=== PATIENT | female | born 1950 | race Caucasian/White ===

== ENCOUNTER 2022-05-09 08:05 | Outpatient (CLI) | payer MEDICARE, OTHER, SELFPAY ==
--- NOTE | ~2022-05-09 | DEXA_ITS ---
Bone Density Report Name: FLOR MONTIEL Age: 72 Sex: Female Ethnicity: White Date of : 1950 Indication: postmenopausal; screening for osteoporosis; hysterectomy; Referring Provider: ONI, MADY Tran Study: Bone densitometry was performed. Exam Date: May 09, 2022 Accession number: [id number] Bone Density: Region BMD T-score Z-score Classification AP Spine(L1-L4) 0.807 -2.2 0.0 Osteopenia Femoral Neck (Left) 0.586 -2.4 -0.5 Osteopenia Total Hip (Left) 0.820 -1.0 0.6 Normal Femoral Neck (Right) 0.600 -2.2 -0.4 Osteopenia Total Hip (Right) 0.817 -1.0 0.5 Normal Total Hip Mean 0.819 -1.0 0.6 Normal World Health Organization criteria for BMD impression classify patients as: Normal (T-score at or above -1.0), Osteopenia (T-score between -1.0 and -2.5), or Osteoporosis (T-score at or below -2.5). 10-year Fracture Risk(1): Major Osteoporotic Fracture 14% Hip Fracture 3.4% Reported Risk Factors: [place] (), Neck BMD=0.586, BMI=26.8 (1) FRAX(R) Version 3.08. Fracture probability calculated for an untreated patient. Fracture probability may be lower if the patient has received treatment. Clinical Information Provided by Patient: Has used the following medications: Vitamin D, Calcium Has the following medical conditions: Hysterectomy Patient maximum height was 64 Menopause Age: 50 No regular weight bearing exercise Does not regularly consume dairy products Onset of menses at age 14 Number of children 2 Impression: The patient has low bone mass, based on the Left Femoral Neck T-score. The patient has an estimated ten-year risk of hip fracture of 3.4% and an estimated ten-year risk of major fracture of 14%, based on the WHO FRAX algorithm. Discussion: BONE DENSITY IS LOW AT ONE OR MORE SKELETAL SITES. THE PATIENT'S BMD AND CLINICAL RISK FACTORS CONTRIBUTE TO THIS PATIENT'S INCREASED RISK OF FRACTURE. This patient's lowest T-score is low at one or more skeletal sites. It meets the World Health Organization's (WHO) criteria for ?low bone mass? (T-score between -1.0 and -2.5). The patient's 10-year risk of hip fracture as calculated by FRAX exceeds the threshold where pharmacological therapy is recommended by the National Osteoporosis Foundation (NOF). However, all treatment decisions require clinical judgment and consideration of individual patient factors, including patient preferences, comorbidities, previous drug use, risk factors not captured in the FRAX model (e.g., frailty, falls, vitamin D deficiency, increased bone turnover, interval significant decline in bone density) and possible under or overestimation of fracture risk by FRAX. The patient should follow a healthful lifestyle (good nutrition with adequate calcium and vitamin D, and appropriate weight-bear
--- NOTE | ~2022-05-09 | MM_ITS ---
EXAMINATION: MM screening michaela BI w reza HISTORY: Screening mammogram TECHNIQUE: Craniocaudal and mediolateral oblique 3-D tomosynthesis images were obtained and synthetic 2-D images were generated. CAD analysis was submitted and interpreted. COMPARISON: 07/15/2011, 07/11/2010 bilateral screening mammogram examinations BREAST PARENCHYMAL COMPOSITION: The breasts are heterogeneously dense, which may obscure small masses . FINDINGS: Stable mild fibroglandular asymmetry. Occasional benign calcifications are noted bilaterall y. There is no evidence of suspicious mass, calcification, or architectural distortion to suggest mal ignancy in either breast. There has been no suspicious interval change. IMPRESSION: 1. No mammographic evidence of malignancy. 2. Recommend routine screening mammography in one year. BI-RADS Category 2: Benign finding(s). Reviewed, dictated and finalized at location A. WORKER
== END 2022-05-09 08:06 | disposition home or self-care (01) ==
LOC: ANHIMG 08:12
PROVIDERS: Visit Provider Family Medicine
DX: Z12.31 Encounter for screening mammogram for malignant neoplasm of breast (principal); Z78.0 Asymptomatic menopausal state; M85.89 Other specified disorders of bone density and structure, multiple sites
CPT/HCPCS: 77063; 77067; 77080

== ENCOUNTER → 2022-07-01 07:59 | Outpatient (CLI) | payer SELFPAY ==
--- NOTE | ~2022-07-01 | XR_ITS ---
EXAMINATION: XR chest 2V 07/01/2022 09:24 INDICATION: Occupational exposure PROCEDURE: 2 view chest COMPARISON: 05/29/2010 FINDINGS: There is a subtle left basilar nodular asymmetries. The cardiomediastinal silhouette is wit hin normal limits. There are no pleural effusions. There is no pneumothorax suspected. IMPRESSION: 1: Subtle left basilar nodular asymmetries. Recommend correlation with CT chest to exclude parenchym al nodule. Reviewed, dictated and finalized at location B. VERY SUPERVISOR IMPRESSION: 1: Subtle left basilar nodular asymmetries. Recommend correlation with CT ches t to exclude parenchymal nodule.
== END ==
PROVIDERS: PCP Family Medicine
DX: T75.89XA Other specified effects of external causes, initial encounter (principal); R91.8 Other nonspecific abnormal finding of lung field
CPT/HCPCS: 71046

== ENCOUNTER 2023-10-13 08:01 | Outpatient (CLI) | payer MEDICARE, SELFPAY ==
--- NOTE | ~2023-10-13 | MM_ITS ---
EXAMINATION: MM screening michaela BI w reza HISTORY: Screening TECHNIQUE: Craniocaudal and mediolateral oblique 3-D tomosynthesis images were obtained and synthetic 2-D images were generated. CAD analysis was submitted and interpreted. COMPARISON: Comparison to multiple prior studies sequentially, with oldest reviewed study dated 09/2011. BREAST PARENCHYMAL COMPOSITION: Not dense: There are scattered areas of fibroglandular density. FINDINGS: There is no evidence of suspicious mass, calcification, or architectural distortion to sugg est malignancy in either breast. There has been no suspicious interval change. IMPRESSION: 1. No mammographic evidence of malignancy. 2. Recommend routine screening mammography in one year. BI-RADS Category 1: Negative Reviewed, dictated and finalized at location B.
== END 2023-10-13 08:02 | disposition home or self-care (01) ==
LOC: ANHIMG 08:04
PROVIDERS: PCP Family Medicine; Visit Provider Family Medicine
DX: Z12.31 Encounter for screening mammogram for malignant neoplasm of breast (principal)
CPT/HCPCS: 77063; 77067

== ENCOUNTER 2023-11-20 11:58 | Emergency (ER) | payer MEDICARE, SELFPAY ==
--- NOTE | ~2023-11-20 | XR_ITS ---
XR toe 5th RT min 2V 11/20/2023 12:26 Indication: Right fifth toe pain Procedure: 4 views right fifth toe Comparison: No prior studies for comparison. Findings: There is a mildly angulated, displaced extra-articular fracture right fifth proximal phalan x. Mild soft tissue swelling. No foreign bodies. Impression: 1: Displaced, angulated extra-articular fracture right fifth proximal phalanx. Reviewed, dictated and finalized at location B. Impression: 1: Displaced, angulated extra-articular fracture right fifth proximal phalanx.
[2023-11-20 12:13] VITALS: BP 116/77; PULSE 63; RESP 18; TEMP 36.4; O2SAT 98
[2023-11-20 12:15] VITALS: BP 116/77; PULSE 63; RESP 18; TEMP 36.4; O2SAT 98
--- NOTE | 2023-11-20 12:15 | ED.EXTPRO ---
HPI - Extremity Problem General Chief complaint: Extremity Problem,Nontraumatic Stated complaint: lower extremity injury Time Seen by Provider: 11/20/23 12:25 Source: patient, RN notes reviewed and old records reviewed Mode of arrival: ambulatory Limitations: no limitations History of Present Illness HPI Narrative: 73 year old female presents to [facility] care with complaints of accidentally getting the right 5th toe caught on an extra pair of flip flops that were in the kitchen causing 5th toe to hyperextend. Patient has pain and swelling to her right right 5th toe with noted deformity and bruising with swelling. No pain at rest but 8/10 with ambulation and palpation.Patient has applied ice to her right 5th toe MD Complaint: other (right 5th toe pain and injury) Onset (ago): hour(s) (at 0930 this morning) Pain Consistency: intermittent Location: right and toe (5th) Severity scale (1-10): 8 Quality: aching and sharp Relieving factors: cold therapy and rest Exacerbating factors: weight bearing and palpation Related Data Home Medications Medication Instructions Recorded Confirmed carvedilol 3.125 mg tablet mg 11/20/23 rosuvastatin 20 mg tablet mg 11/20/23 Allergies Allergy/AdvReac Type Severity Reaction Status Date / Time No Known Allergies Allergy Verified 11/20/23 12:15 Review of Systems Review of Systems: CONSTITUTIONAL: Denies fever, chills, or sweats. EYES: Denies visual changes, redness, or discharge. ENT: Denies rhinorrhea, congestion, sore throat, or otalgia. CARDIOVASCULAR: Denies chest pain, palpitations, or edema. RESPIRATORY: Denies cough or dyspnea. GASTROINTESTINAL: Denies abdominal pain, nausea, vomiting, or diarrhea. GENITOURINARY: Denies dysuria or hematuria. SKIN: Denies rash or itching. MUSCULOSKELETAL: Denies back pain,positive for right 5th toe pain and swelling with bruising,or myalgia. NEUROLOGIC: Denies headache, numbness, or weakness. PSYCHIATRIC: Denies anxiety or depression. All systems reviewed & are unremarkable except as noted in HPI and below PMFSH Past Medical History Medical History (Updated 11/22/23 @ 08:29 by Mary Ann Gusman NP) Hyperlipidemia Surgical History Surgical History (Updated 11/20/23 @ 12:40 by Mary Ann Gusman NP) H/O: hysterectomy History of tubal ligation Social History Social History (Updated 11/22/23 @ 08:22 by Mary Ann Gusman NP) Smoking status: Never smoker Alcohol intake: current Alcohol use details: social Substance use type: does not use Living arrangements: alone Additional living arrangements comments: family lives close Gender identity (if verbalized by the patient): Female Comments At time of signature, agree with nursing past medical, surgical, social and family history. There is no relevant family history pertinent to the presenting complaint Exam Narrative: GENERAL: Well-appearing, well-nourished, and in no acute distress. HEAD: Normocephalic, atraumatic. EYES: PERRLA and EOMI. ENT: Nares clear, no rhinorrhea or epistaxis. Mucous membranes moist. NECK: Supple.no lymphadenopathy CHEST: Clear to auscultation. No respiratory distress.SAO2 98% on room air HEART: Regular rate and rhythm. No murmur heard. Normal peripheral pulses. ABDOMEN: Soft, nontender, nondistended, normal active bowel sounds. EXTREMITIES: Normal range of motion. Exception noted to right 5th toe with swelling bruising and noted deformity, palpable right pedal pulse foot warm and pink SKIN: Warm, dry, no rash. NEURO: No focal deficits. Alert and oriented x3. Course Course Emergency Course: Patient is aware of diagnosis, understands and agrees to treatment plan.? Anticipatory guidance given.? Patient agrees to follow-up as directed and is aware of reasons to seek care at the emergency department. Portions of this record may have been created with voice recognition software Level of Care: Express Care Visit Vital Signs Vital signs: Vit
== END 2023-11-20 13:13 | disposition home or self-care (01) ==
PROVIDERS: Emergency Provider Registered Nurse; PCP Family Medicine
DX: S92.511A Displaced fracture of proximal phalanx of right lesser toe(s), initial encounter for closed fracture (principal); W22.8XXA Striking against or struck by other objects, initial encounter; E78.5 Hyperlipidemia, unspecified
CPT/HCPCS: 73660; 99214; G0463

== ENCOUNTER 2024-12-24 05:03 | Emergency (ER) | payer MEDICARE, SELFPAY ==
--- NOTE | ~2024-12-24 | CT_ITS ---
EXAMINATION: CT abdomen pelvis wo con DATE: 12/24/2024 08:01 INDICATION: Right flank pain. History of kidney stones. TECHNIQUE: Computed tomography (CT) of the abdomen and pelvis was performed without intravenous contr ast. The dose-length product was 474.12 mGy-cm. Automated exposure control and iterative reconstructi on technique were employed. COMPARISON: CT dated 05/30/2008 FINDINGS: Dependent atelectasis. Otherwise, lung bases unremarkable. Heart size normal. No significan t pleural or pericardial effusion. The liver, pancreas, adrenal glands are unremarkable. There are ca lcified granulomas of the spleen. There are nonobstructing bilateral renal stones. There is a left ex trarenal pelvis. No ureteral stones or hydronephrosis. Bladder is unremarkable. Nonobstructive bowel gas pattern. The appendix is not positively visualized. There is no pericecal inflammatory change to suggest appendicitis. There are pelvic phleboliths. Gallbladder is present. No significant vascular abnormality. No lymphadenopathy. IMPRESSION: 1. Nonobstructing bilateral nephrolithiasis. Reviewed, dictated and finalized at location A.
--- OUTSIDE RECORDS SUMMARY | 2024-12-24 05:05 | XMS_ITS | Clinical Summary ---
Author Organization [facility] Address [address] [place] [address] Care Team Providers Care Qa Software Test Engineer Name Role Phone Dallas Teague MD Primary Care Provider + Allergies No known active allergies Medications triamcinolone (KENALOG) 0.1 % cream APPLY AA ONCE D 3 TO 5 TIMES A WEEK 2 019 Active aspirin 81 mg enteric coated tabletIndications:CAD in [place] artery Take 1 tablet (81 mg total) by mouth daily 30 tablet 11 022 Active Additional Information Patient taking differently:81 mg oralEvery other day, Reported on 07/26/2024 clobetasoL (TEMOVATE) 0.05 % cream APPLY THIN LAYER TOPICALLY TO THE AFFECTED AREA TWICE DAILY FOR 2 WEEKS NEEDED FOR ITCHING Active tacrolimus (PROTOPIC) 0.1 % ointment APPLY TOPICALLY TO THE AFFECTED AREA TWICE DAILY NEEDED Active carvediloL (COREG) 3.125 mg tabletIndications:CAD in [place] artery TAKE 1 TABLET(3.125 MG) BY MOUTH TWICE DAILY 180 tablet 3 024 Active rosuvastatin (CRESTOR) 20 mg tabletIndications:Pure hypercholesterolemia TAKE 1 TABLET(20 MG) BY MOUTH DAILY 90 tablet 3 024 Active promethazine-DM (PROMETHAZINE-DM) 1.25-3 mg/mL syrupIndications:Acute cough TAKE 5 TO 10 ML BY MOUTH EVERY 4 HOURS NEEDED FOR COUGH 120 mL 2 025 Active Additional Information Patient not taking.Reported on 07/26/2024 alendronate (FOSAMAX) 70 mg tabletIndications:Age-r elated osteoporosis without current pathological fracture Take 1 tablet (70 mg total) by mouth every 7 days Take in the morning with a full glass of water, on an empty stomach, and do not take anything else by mouth or lie down for the next 30 min. 12 tablet 3 025 2025 Active Active Problems Problem Noted Date Diagnosed Date Age-related osteoporosis wit hout current pathological fracture 07/26/2024 Pre-diabetes 07/25/2023 Assessment & Plan (07/25/2023 4:40 PM CDT): - discussed diet and exercise to avoid development of diabetes. SOB (shortness of breath) 07/25/2023 Assessment & Plan (07/25/2023 4:41 PM CDT): - will get PFTs to evaluate lung function - if sx worsen will get repeat CXR Encounter for preventive health examination 06/12 Assessment & Plan (07/25/2023 4:40 PM CDT): - Reviewed with the patient BMI, blood pressure, diet, exercise, and encouraged healthy lifestyle choices. - Screened for high risk behaviors, diet and exercise habits, and symptoms of depression. - reviewed screening labs - encouraged regular exercise and healthy lifestyle Assessment & Plan (06/26/2022 4:22 PM SOLUTION STRATEGIST): - Reviewed with the patient BMI, blood pressure, diet, exercise, and encouraged healthy lifestyle choices. - Screened for high risk behaviors, diet and exercise habits, and symptoms of depression. - check screening labs - encouraged regular exercise Pure hypercholesterolemia 02/06/2022 Assessment & Plan (07/25/2023 4:40 PM CDT): - stable - continue current medication Assessment & Plan (06/26/2022 4:22 PM SOLUTION STRATEGIST): - stable - continue current medication Assessment & Plan (02/06/2022 3:30 PM CDT): - stable - continue current medication Coronary artery disease invo [place]ving [place] coronary artery of [place] heart without angina pectoris 02/06/2022 Assessment & Plan (07/25/2023 4:40 PM CDT): - stable - continue current medication Assessment & Plan (06/26/2022 4:22 PM SOLUTION STRATEGIST): - stable - continue current medication Assessment & Plan (02/06/2022 3:29 PM CDT): - stable - continue current medication Flexural eczema 02/06/2022 Assessment & Plan (07/25/2023 4:40 PM CDT): - stable - continue current medication Assessment & Plan (02/06/2022 3:30 PM CDT): - stable - continue current medication Encounters Date Type Department Care Team Description 12/06/2024 Telephone [facility] Primary Care [address] [place] [address] [address] [place] [address] Jessica Quick MA Chart Review ([employer] statin no appt) 11/22/2024 Telephone [facility] Primary Care [address] [place] [address] [address] [place] [address] Dallas Teague MD Medical Records Request 09/27/2024 8:15 AM CDT Office Visit [facility] Hand Surgery [address] [place] [address] [address] [place] [address] Ching Zuniga PA Trigger finger of right hand, unspecified finger (Primary Dx); Trigger finger of left hand, unspecified finger; 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 from Last 3 Months Immunizations Immunization Administration Dates Next Due Hep A, Adult 08/23/2004 Influenza, Quad, Adjuvantate d, Intramuscular 01/24/2020 Influenza, Quadrivalent, Hig h Dose, Preservative Free, Intrr 02/06/2022 Influenza, Quadrivalent, Spl it, Intramuscular 01/24/2020,05/12/2012 Influenza, Trivalent, High D ose, Split, Preservative Free, Intramuscular 02/19/2019,03/18/2018 Influenza, Unspecified 02/10/2024(Deferr ed: Patient Refused),02/09/2023(Deferred: Other),01/24/2021,01/10/2021 Moderna SARS-CoV-2 Monovalen t Vaccination (12+ YRS) 02/08/2021,01/10/2021 Pneumococcal Conjugate PCV 13 03/12/2017 Pneumococcal Polysaccharide PPV23 03/18/2018 Td, Not Adsorbed 05/12/2011 Tdap 07/23/2020 ZOSTER Recombinant 05/12/2010 Surgical History Surgery Date Site/Laterality Comments HYSTERECTOMY HAND SURGERY 6 years ago Left HAND SURGERY 05/26/2019 Right CARDIAC CATHETERIZATION ANGIOPLASTY about 3.5 years ago Medical History Medical History Date Comments History of angina CAD (coronary artery disease) Arthritis about a year ago Heart disease Angina - 3.5 years ago Kidney stone 1 about 5 years ago Family History Medical History Relation Name Comments Bladder Cancer Father Bharat Cancer Father Bharat Diabetes Father Bharat Heart attack Father Bharat Heart disease Father Bharat Stroke Father Bharat Alzheimer's disease Mother Alva Arthritis Mother Alva Hyperlipidemia Mother Alva Relation Name Status Comments Father Bharat (Age 82) Mother Alva (Age 88) Social History Tobacco Use Types Packs/Day Years Used Date Smoking Tobacco: Never Smokeless Tobacco: Never Alcohol Use Standard Drinks/Week Comments Never 0 (1 standard drink = 0.6 oz pur e alcohol) AUDIT-C Answer Date Recorded Q1: How often do you have a drink containing alcohol? Never 07/26/2024 Q2: How many drinks containi ng alcohol do you have on a typical day when you are drinking? Patient does not drink Q3: How often do you have si x or more drinks on one occasion? Never 07/26/2024 PHQ-2 Answer Date Recorded PHQ-2 Total Score (If total score is 3 or more points, staff should administer the PHQ-9) 0 07/26/2024 Comments Unknown Sex and Gender Information Value Date Recorded Sex Assigned at Not on file Legal Sex Female 9:00 PM SOLUTION STRATEGIST Gender Identity Not on file Sexual Orientation Not on file Obstetrics History Last Filed Vital Signs Vital Sign Reading Time Taken Comments Blood Pressure 124/72 07/26/2024 3:59 PM CDT Pulse 67 07/26/2024 3:59 PM CDT Temperature 36.2 C (97.2 F) 07/26/2024 3:59 PM CDT Respiratory Rate 16 07/26/2024 3:59 PM CDT Oxygen Saturation 97% 07/26/2024 3:59 PM CDT Inhaled Oxygen Concentration - - Weight 73.9 kg (163 lb) 07/26/2024 3:59 PM CDT Height 162.6 cm (5' 4) 07/26/2024 3:59 PM CDT Body Mass Index 27.98 07/26/2024 3:59 PM CDT Plan of Treatment Health Maintenance Due Date Last Done Comments Hepatitis C Screening 1950 Hepatitis B Screening 1968 Zoster Vaccine (2 of 2) 07/07/2010 05/12/2010 Covid-19 Vaccine (3 2023-2 5 season) 2024 02/08/2021, 01/10/2021 Osteoporosis Screening-Bone Density Scan 05/09/2024 05/09/2022 Breast Cancer Screening-Mammogram 10/12/2024 10/13/2023, 05/09/2022, 01/01/2021, Additional history exists Colon Cancer Screening-Colonoscopy 12/19/2024 12/20/2019 Influenza Vaccine (#1) 2025 , 01/24/2021, 01/10/2021, Additional history exists Depression Screening 07/26/2025 07/26/2024, 07/25/2023, 06/26/2022, Additional history exists Fall Risk Assessment 07/26/2025 07/26/2024, 07/25/2023, 06/26/2022, Additional history exists Well Visit 65+ 07/26/2025 07/26/2024, 07/10, 06/26/2022 DTaP/Tdap/Td Vaccine (2 - Td or Tdap) 07/23/2030 07/23/2020, 05/12/2011 Pneumococcal vaccine 65+ Completed 03/18/2018, 05/2016 Colon Cancer Screening-CT Colonography Discontinued 12/20/2019 Colon Cancer Screening-DNA Stool Discontinued 12/20/19 Colon Cancer Screening-FIT Discontinued 12/20/2019 Colon Cancer Screening-Sigmoidoscopy Discontinued 12/20/2019 Procedures Procedure Name Priority Date/Time Associated Diagnosis Comments CA ARTHROCENTESIS ASPIR&/INJ SMALL JT/BURSA W/O US Routine 09/27/2024 8:15 AM CDT 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 CA INJECTION 1 TENDON SHEATH/LIGAMENT APONEUROSIS Routine 09/27/2024 8:15 AM CDT Trigger finger of left hand, unspecified finger CA INJECTION 1 TENDON SHEATH/LIGAMENT APONEUROSIS Routine 09/27/2024 8:15 AM CDT Trigger finger of right hand, unspecified finger SCREENING MAMMOGRAM BILATERAL W CHET Schedule Routine, Read Routine (OP Routine) 10/13/2023 9:20 AM CDT DEXA AXIAL SKELETON BONE DENSITY 1 OR MORE SITES Schedule Routine, Read Routine (OP Routine) 05/09/2022 COLONOSCOPY Routine 12/20/2019 from Last 3 Months or Most Recently Relevant to Health Maintenance Results * CA INJECTION 1 TENDON SHEATH/LIGAMENT APONEUROSIS (09/27/2024 8:15 AM CDT) Narrative Ching Zuniga PA - 09/27/2024 8:15 AM CDT Ching Zuniga PA 09/27/2024 8:43 AM Hand / Upper Extremity Arthrocentesis: L thumb A1 Performed by: Ching Zuniga PA Authorized by: Ching Zuniga PA Consent Given by: Patient Verbal consent obtained?: Yes Indications: Pain and therapeutic Condition: trigger finger Location: Thumb Site: L thumb A1 Prep: patient was prepped using a clean technique Needle Size: 27 G Approach: Volar Ultrasound guidance: No Medications Left Thumb Injection: 1 mL lidocaine 10 mg/mL (1 %); 10 mg triamcinolone 40 mg/mL Ching RECIO IN CLINIC/BEDSIDE ORDERABLES F inal Result * CA INJECTION 1 TENDON SHEATH/LIGAMENT APONEUROSIS (09/27/2024 8:15 AM CDT) Narrative Ching Zuniga PA - 09/27/2024 8:15 AM CDT Ching Zuniga PA 09/27/2024 8:43 AM Hand / Upper Extremity Arthrocentesis: R ring A1 Performed by: Ching Zuniga PA Authorized by: Ching Zuniga PA Consent Given by: Patient Verbal consent obtained?: Yes Indications: Therapeutic and pain Condition: trigger finger Location: Ring finger Site: R ring A1 Prep: patient was prepped using a clean technique Needle Size: 27 G Approach: Volar Medications Right Ring Injection: 1 mL lidocaine 10 mg/mL (1 %); 10 mg triamcinolone 40 mg/mL us Ching RECIO IN CLINIC/BEDSIDE ORDERABLES F inal Result * CA ARTHROCENTESIS ASPIR&/INJ SMALL JT/BURSA W/O US (09/27/2024 8:15 AM CDT) Narrative Ching Zuniga PA - 09/27/2024 8:15 AM CDT Ching Zuniga PA 09/27/2024 8:43 AM Small Joint (Foot, Fingers, Toes) Injection: R thumb MCP Performed by: Ching Zuniga PA Authorized by: Ching Zuniga PA Small Joint Injection/Aspiration: Consent Given by: Patient Verbal consent obtained?: Yes Supporting Documentation: Indications: Pain Procedure Details: Location: Thumb Site: R thumb MCP Prep: patient was prepped using a clean techinque Needle Size: 27 G Approach: Dorsal Ultrasound guidance: No Medications: 5 mg triamcinolone 40 mg/mL us Ching RECIO IN CLINIC/BEDSIDE ORDERABLES F inal Result * Screening Mammogram Bilateral W Chet (10/13/2023 9:20 AM CDT) Anatomical Region Laterality Modality Breast Bilateral Mammography Narrative 10/13/2023 9:20 AM CDT Report scanned into media us Historical Provider MD ELAINE MAMMO PROCEDURES Dianna l Result * Dexa Axial Skeleton Bone Density 1 or 2 Site (05/09/2022) Anatomical Region Laterality Modality Body N/A Radiographic Leticia ging us Historical Provider MD ELAINE DXA PROCEDURES Final Result * Colonoscopy (12/20/2019) Anatomical Region Laterality Modality Other us Historical Provider ENDOSCOPY PROCEDURES Dianna l Result from Last 3 Months or Most Recently Relevant to Health Maintenance Insurance [employer] MEDIC[employer] PPO Advance Directives For more information, please contact: [phone] Documents on File Type Date Recorded 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
--- OUTSIDE RECORDS SUMMARY | 2024-12-24 05:05 | XMS_ITS | Continuity of Care Document ---
Author Organization [facility] Address [address] [place] [address] Phone Care Team Providers Care Traveling Engineer Name Role Phone Abhay Breen MD Unavailable Unavailable Advance Directives Directive Yes / No Effective Date File Name No Information Encounters Encounter Description Practice Location Reason(s) For Visit Diagnoses Date Provider Providers Copied on Encounter [facility], [address], [place], [place], [id number], [place] tel:[phone] MICAELA Valderramacson No Information Jamshid Blank. [address], [place], [place], [id number], [place]. tel:[phone] Family History Family Member Type Diagnosis Age At Onset No Information Payers Payer name Insurance type Covered alliance party ID Authoriza tion(s) No Information Social History Type Description Quantity Date Captured Comments Sex Female Smoking Status No Information Chief Complaint And Reason For Visit No Information Reason For Referral Reason For Referral No Information History Of Present Illness Encounter Date Complaint History Of Prese nt Illness No Information Functional Status Date Functional Assessmen t No Information Instructions Date Instruction Additional Infor mation No Information Assessments Type Assessment Date No Information Patient Care Teams Name Effective Dates (start - stop) Status Members No Information
[2024-12-24 05:08] VITALS: BP 138/102; PULSE 70; RESP 20; TEMP 36.5; O2SAT 96
--- NOTE | 2024-12-24 07:26 | ECG_ITS ---
Test Date: 2024-12-24 07:42:52 Measurements Intervals [place] Rate: 61 P: 63 [place]: 164 QRS: -23 QRSD: 81 T: 54 QT: 398 QTc: 401 Interpretive Statements SINUS RHYTHM CANNOT R/O SEPTAL INFARCT, AGE INDETERMINATE BORDERLINE ST ABNORMALITY- HIGH LATERAL LEADS ABNORMAL ECG No previous ECG available for comparison Electronically Signed On 12-24-2024 08:09:31 CDT by Andrew Vivar D.O.
[2024-12-24 07:42] VITALS: BP 131/71; PULSE 68; RESP 15; O2SAT 100
[2024-12-24] MEDS: SODIUM CHLORIDE 0.9% IV 1,000 ML 999 ML IV CONT (07:46)
[2024-12-24] MEDS: HYDROmorphone HCL INJ (*CRX) 1 MG/ML SYR 0.5 MG IV PUSH (07:47)
[2024-12-24] MEDS: ACETAMINOPHEN 500 MG TABLET 1000 MG PO (07:47)
[2024-12-24 07:55] LABS: Hematocrit 41.7 % (37.0-47.0); Hemoglobin 13.5 g/dL (12.0-15.0); Immature Granulocyte Percent A 0.2 % (0-0.5); Lymphocytes Absolute Auto 1.42 K/mm3 (0.9-3.2); Mean Corpuscular HGB Conc 32.4 g/dl (32-36); Mean Corpuscular Hemoglobin 29.5 pg (26-34); Mean Corpuscular Volume 91.2 fl (80-100); Nucleated Red Blood Cells Absolute Auto 0.000 K/mm3 (0.0-0.012); Nucleated Red Blood Cells Perc 0.0 % (0.0-0.2); Platelet Count Result 185 k/mm3 (150-375); Red Blood Count 4.57 M/mm3 (4.2-5.4); White Blood Count 4.8 K/mm3 (4.5-10.0)
[2024-12-24 07:58] LABS: Add Urine Microscopic? YES; Appearance Urine Clear (Clear); Glucose Urine UA Negative (Negative); Leukocyte Esterase Ur 1+ LEU/UL (Negative); Nitrate Urine Negative (Negative); Non Pathogenic Casts 0-2; Specific Grav Ur 1.028 (1.001-1.035)
[2024-12-24 08:05] LABS: Alanine Aminotransferase 35 U/L (6-35); Albumin Level 4.2 g/dL (3.5-5.1); Alkaline Phosphatase 55 U/L (38-126); Anion Gap 8 mmol/L (4-12); Aspartate Amino Transferase 35 U/L (14-36); Bilirubin,Total 0.5 mg/dL (0.2-1.3); Blood Urea Nitrogen 19 mg/dL (7-17); Calcium 9.4 mg/dL (8.4-10.2); Carbon Dioxide 27 mmol/L (22-30); Chloride 107 mmol/L (98-107); Estimated CRCL calculation 68 ml/min; Estimated Glomerular Filt Rate > 60; Glucose 130 mg/dL (65-110); Potassium 4.4 mmol/L (3.4-5.0); Sodium 142 mmol/L (137-145); Total Protein 7.1 g/dL (6.3-8.2)
--- NOTE | 2024-12-24 08:10 | ED_ITS ---
HPI - General Adult General Chief complaint: Back Pain/Injury Stated complaint: back pain Time Seen by Provider: 12/24/24 06:59 History of Present Illness HPI narrative: This is a 74-year-old female presenting ED with chief complaint of back/flank pain. Patient says starting yesterday she had pain in her right lower back that radiated down her leg. It is described as a tingly sensation. Today pain is more located in her right flank and radiates in right lower abdomen. It is worse with movement. It does not completely resolve when she is not moving. She does not have any weakness to her lower extremities, saddle anesthesia, bladder retention or bowel incontinence. No traumatic injuries. No fevers or known cancer. She has a history of kidney stones Related Data Home Medications ?Medication ?Instructions ?Recorded ?Confirmed ?Last Taken ?Type carvedilol 3.125 mg tablet 3.125 mg PO BID 11/20/23 12/10/24 Unknown History rosuvastatin 20 mg tablet 20 mg PO DAILY 11/20/23 12/10/24 Unknown History Allergies Allergy/AdvReac Type Severity Reaction Status Date / Time No Known Allergies Allergy Verified 12/24/24 05:11 [facility] Past Medical History Medical History (Updated 12/24/24 @ 10:10 by Roberto Johnson MD) Hyperlipidemia Surgical History Surgical History (Updated 11/20/23 @ 12:40 by Mary Ann Gusman NP) History of tubal ligation H/O: hysterectomy Social History Social History (Updated 11/22/23 @ 08:22 by Mary Ann Gusman NP) Smoking status: Never smoker Alcohol intake: current Alcohol use details: social Substance use type: does not use Living arrangements: with family Additional living arrangements comments: family lives close Gender identity (if verbalized by the patient): Female Spiritual care concerns: No Exam 2 Narrative: APPEARANCE: No apparent distress. Head: atraumatic. EYES: EOMI, NOSE: Atraumatic NECK: Trachea midline RESPIRATORY: No increased rate of breathing CARDIOVASCULAR: RRR, pulses +2 in lower extremities ABDOMINAL: Non-distended soft nontender no guarding rebound, no CVA tenderness MUSCULOSKELETAl: Straight leg negative bilaterally, reproducible pain on movement NEURO: Alert. Cranial nerves 2-12 grossly intact. Sensation light touch, motor function cerebellar function intact for 4 extremities. Gait exam was normal. SKIN:: Warm, dry. Normal color PSYCHIATRIC: Normal affect Course Vital Signs Vital signs: Vital Signs Temperature 97.7 F 12/24/24 05:08 Pulse Rate 70 12/24/24 05:08 Respiratory Rate 20 12/24/24 05:08 Blood Pressure 138/102 H 12/24/24 05:08 Pulse Oximetry 96 12/24/24 05:08 Oxygen Delivery Room Air 12/24/24 05:08 Temperature 97.7 F 12/24/24 05:08 Pulse Rate 68 12/24/24 07:42 Respiratory Rate 15 12/24/24 07:42 Blood Pressure 131/71 12/24/24 07:42 Pulse Oximetry 100 12/24/24 07:42 Oxygen Delivery Room Air 12/24/24 05:08 Medical Decision Making MDM Narrative Medical decision making narrative: -Course: 74-year-old female history of kidney stones presenting with right flank pain. Pain is worse with movement. There is no CVA tenderness. CT a/pthis showed bilateral nephrolithiasis but no ureteral stones. Urine with 6- 10 white blood cells. Discussed this with the patient she does not have any urinary symptoms and we will not treat for a UTI. Patient's pain improved. Symptoms most consistent with MSK pain/back spasms. She will be discharged on Tylenol Robaxin and lidocaine patches. Given return precautions. -DDX includes but is not limited to: Muscle strain, UTI/pyelo, kidney stone Vital Signs Vital Signs: Vital Signs Temperature 97.7 F 12/24/24 05:08 Pulse Rate 70 12/24/24 05:08 Respiratory Rate 20 12/24/24 05:08 Blood Pressure 138/102 H 12/24/24 05:08 Pulse Oximetry 96 12/24/24 05:08 Oxygen Delivery Room Air 12/24/24 05:08 Temperature 97.7 F 12/24/24 05:08 Pulse Rate 68 12/24/24 07:42 Respiratory Rate 15 12/24/24 07:42 Blood Pressure 131/71 12/24/24 07:42 Pulse Oximetry 100 12/24/24 07:42 Oxygen Delivery Room Air 12/24/24 05:08 Lab Data 12/24/24 07:46 12/24/24 07:46 Labs: Lab Results 12/24/24 Range/Units 07:46 WBC 4.8 (4.5-10.0) K/mm3 RBC 4.57 (4.2-5.4) M/mm3 Hgb 13.5 (12.0-15.0) g/dL Hct 41.7 (37.0-47.0) % MCV 91.2 (80-100) fl MCH 29.5 (26-34) pg MCHC 32.4 (32-36) g/dl RDW 12.7 (11.5-14.5) % Plt Count 185 (150-375) k/mm3 MPV 8.6 (7.4-10.4) fl Immature Gran % (Auto) 0.2 (0-0.5) % Neut % (Auto) 59.8 (45.5-73.1) % Lymph % (Auto) 29.6 (18.3-44.2) % [place] % (Auto) 8.1 (2.6-8.5) % Eos % (Auto) 1.9 (0-4.4) % Baso % (Auto) 0.4 (0.2-1.2) % Lymph # (Auto) 1.42 (0.9-3.2) K/mm3 [place] # (Auto) 0.4 (0.1-0.6) K/mm3 Eos # (Auto) 0.1 (0-0.3) K/mm3 Baso # (Auto) 0.0 (0.0-0.1) K/mm3 Abs Immat Gran (auto) 0.01 (0.00-0.031) K/mm3 Absolute Neuts (auto) 2.9 (1.3-6.7) K/mm3 Absolute Nucleated RBC 0.000 (0.0-0.012) K/mm3 Nucleated RBC % 0.0 (0.0-0.2) % Sodium 142 (137-145) mmol/L Potassium 4.4 (3.4-5.0) mmol/L Chloride 107 (98-107) mmol/L Carbon Dioxide 27 (22-30) mmol/L Anion Gap 8 (4-12) mmol/L BUN 19 H (7-17) mg/dL Creatinine 0.61 L (0.7-1.0) mg/dL Estim Creat Clear Calc 68 ml/min Estimated GFR > 60 (59 - ) Glucose 130 H (65-110) mg/dL Calcium 9.4 (8.4-10.2) mg/dL Total Bilirubin 0.5 (0.2-1.3) mg/dL AST 35 (14-36) U/L ALT 35 (6-35) U/L Alkaline Phosphatase 55 (38-126) U/L Total Protein 7.1 (6.3-8.2) g/dL Albumin 4.2 (3.5-5.1) g/dL Urine Color Yellow (Yellow) Urine Appearance Clear (Clear) Urine pH 6.0 (5.0-9.0) Ur Specific [place] 1.028 (1.001-1.035) Urine Protein Negative (Negative) mg/dL Urine Glucose (UA) Negative (Negative) mg/dL Urine Ketones Negative (Negative) mg/dL Ur Blood (Man) Negative (Negative) Urine Nitrate Negative (Negative) Urine Bilirubin Negative (Negative) Urine Urobilinogen 0.2 (<2.0) mg/dL Leukocyte Esterase Rfl 1+ H (Negative) SAHRA/UL Urine RBC 0-2 (0-2) /hpf Urine WBC 6-10 H (0-3) /hpf Ur Squamous Epith Cells None seen (Few) /hpf Urine Bacteria None seen /hpf Urine Casts 0-2 Discharge Plan Discharge Clinical Impression: Back pain Patient Disposition: Home Condition: Stable Instructions: Antibiotic Form, Back Pain (ED) Additional Instructions: You were seen in the emergency department for back pain. Please use Tylenol Robaxin and lidocaine patches as needed. Please follow-up your primary care for further management. If you develop severe pain or any new symptoms please return to the ED for re-evaluation. Patient Language: Tongan Prescriptions: New acetaminophen 500 mg tablet 1,000 mg PO TID PRN (Reason: michael) 7 Days Qty: 42 0RF methocarbamol 750 mg tablet 1,500 mg PO TID Qty: 42 0RF lidocaine 5 % adhesive patch,medicated 1 patch topical DAILY Qty: 15 0RF Rx Instructions: leave on most painful area for up to 12 hrs No Action carvedilol 3.125 mg tablet 3.125 mg PO BID rosuvastatin 20 mg tablet 20 mg PO DAILY Follow-up/Referrals: Zahida,Dallas Tran MD [Primary Care Provider] -
[2024-12-24 10:13] VITALS: BP 114/66; PULSE 65; RESP 17; O2SAT 100
== END 2024-12-24 10:33 | disposition home or self-care (01) ==
PROVIDERS: Emergency Provider Emergency Medicine; PCP Family Medicine
DX: M54.50 Low back pain, unspecified (principal); E78.5 Hyperlipidemia, unspecified; Z90.710 Acquired absence of both cervix and uterus; Z79.899 Other long term (current) drug therapy; R94.31 Abnormal electrocardiogram [ECG] [EKG]
CPT/HCPCS: 36415; 74176; 80053; 81001; 85025; 87086; 93005; 96361; 96374; 99284; A9270; J1171; J7030

== ENCOUNTER 2024-12-27 00:59 | Day surgery (SDC) | payer MEDICARE, SELFPAY ==
[2024-12-10 13:33] VITALS: BMI 27.3
--- OUTSIDE RECORDS SUMMARY | 2024-12-27 01:01 | XMS_ITS | Continuity of Care Document ---
Author Organization [facility] Address [address] [place] [address] Phone Care Team Providers Care Division Traffic Superintendent Name Role Phone Abhay Breen MD Unavailable Unavailable Advance Directives Directive Yes / No Effective Date File Name No Information Encounters Encounter Description Practice Location Reason(s) For Visit Diagnoses Date Provider Providers Copied on Encounter [facility], [address], [place], [place], [id number], [place] tel:[phone] MICAELA Valderramacson No Information Jam[facility] Blank. [address], [place], [place], [id number], [place]. tel:[phone] Family History Family Member Type Diagnosis Age At Onset No Information Payers Payer name Insurance type Covered green party ID Authoriza tion(s) No Information Social [...]
--- OUTSIDE RECORDS SUMMARY | 2024-12-27 01:01 | XMS_ITS | Clinical Summary ---
Author Organization [facility] Address [address] [place] [address] Care Team Providers Care Dairy Husbandman Name Role Phone Dallas Teague MD Primary Care Provider + Allergies No known active allergies Medications triamcinolone (KENALOG) 0.1 % cream APPLY AA ONCE D 3 TO 5 TIMES A WEEK 2 019 Active aspirin 81 mg enteric coated tabletIndications:CAD in holy cross artery Take 1 tablet (81 mg total) [...] Active carvediloL (COREG) 3.125 mg tabletIndications:CAD in [place] cross artery TAKE 1 TABLET(3.125 MG) BY MOUTH [...] lifestyle Assessment & Plan (06/26/2022 4:22 PM YEAST STACKER): - Reviewed with the patient BMI, blood pressure, diet, exercise, and encouraged healthy lifestyle choices. - Screened for high risk behaviors, diet and exercise habits, and symptoms of depression. 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 02/06/2022 Assessment & Plan (07/25/2023 4:40 PM CDT): - stable - continue current medication Assessment & Plan (06/26/2022 4:22 PM YEAST STACKER): - stable - continue current medication Assessment & Plan (02/06/2022 3:29 PM CDT): - stable - continue current medication Flexural eczema 02/06/2022 Assessment & Plan (07/25/2023 4:40 PM CDT): - stable - continue current medication Assessment & Plan (02/06/2022 3:30 PM CDT): - stable - continue current medication Encounters Date Type Department Care Team Description 12/06/2024 Telephone [facility] Primary [facility] [address] [place] [address] [address] [place] [address] Jessica Quick MA Chart Review ([employer] statin no appt) 11/22/2024 Telephone [facility] [address] [place] [address] [address] [place] [address] Dallas Teague MD Medical Records Request 09/27/2024 8:15 AM CDT Office Visit [facility] Hand Surgery [address] [place] [address] [address] [place] [address] Ching Zuniga PA Trigger finger [...] on file Legal Sex Female 9:00 PM YEAST STACKER Gender Identity Not on file Sexual Orientation [...] Procedure Name Priority Date/Time Associated Diagnosis Comments LA ARTHROCENTESIS ASPIR&/INJ SMALL JT/BURSA W/O US Routine 09/27/2024 8:15 AM CDT 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 LA INJECTION 1 TENDON SHEATH/LIGAMENT APONEUROSIS Routine 09/27/2024 8:15 AM CDT Trigger finger of left hand, unspecified finger LA INJECTION 1 TENDON SHEATH/LIGAMENT APONEUROSIS Routine 09/27/2024 [...] Recently Relevant to Health Maintenance Results * LA INJECTION 1 TENDON SHEATH/LIGAMENT APONEUROSIS (09/27/2024 8:15 [...] IN CLINIC/BEDSIDE ORDERABLES F inal Result * LA INJECTION 1 TENDON SHEATH/LIGAMENT APONEUROSIS (09/27/2024 8:15 [...] IN CLINIC/BEDSIDE ORDERABLES F inal Result * LA ARTHROCENTESIS ASPIR&/INJ SMALL JT/BURSA W/O US (09/27/2024 [...] Advance Directives For more information, please contact: [phone] Documents on File Type Date Recorded Patient Ada Accommodation Consultant Expl anation ADVANCE DIRECTIVE 05/28/2019 12:00 AM MARILYN LOPEZ WILL Care Teams Dairy Husbandman Relationship Specialty Start Date End Date Dallas Teague MD [address] [place] [id number] PCP - General Family Medicine 02/06/22
[2024-12-27 06:25] VITALS: BP 115/74; PULSE 73; RESP 16; TEMP 36.4; O2SAT 97
[2024-12-27] MEDS: LACTATED RINGERS 1,000 ML 150 ML IV CONT (06:35)
--- NOTE | 2024-12-27 06:57 | P.PNAN_ITS ---
Anes - Initial Pre Proc Eval Procedure: Operation Date: 12/27/24 07:30 Proposed Procedures p Screening Colonoscopy - Chay Ramires MD Date/Time: 12/27/24 06:57 Surgeon: Chay Ramires MD Pre Op Diagnosis: screening Patient Data Age: 74 Gender: F Height: 1.63 m Weight: 73.7 kg Last Vital Signs Temp 36.4 C 12/27/24 06:25 Pulse 73 12/27/24 06:25 Resp 16 12/27/24 06:25 BP 115/74 12/27/24 06:25 Pulse Ox 97 12/27/24 06:25 O2 Del Method Room Air 12/27/24 06:25 Allergies Allergy/AdvReac Type Severity Reaction Status Date / Time No Known Allergies Allergy Verified 12/27/24 06:22 Home Medications ?Medication ?Instructions ?Recorded ?Confirmed ?Type carvedilol 3.125 mg tablet 3.125 mg PO BID 11/20/23 12/27/24 History rosuvastatin 20 mg tablet 20 mg PO DAILY 11/20/23 12/27/24 History acetaminophen 500 mg tablet 1,000 mg (2 x 500 mg) PO TID PRN 12/24/24 12/27/24 Rx michael 7 days #42 tabs lidocaine 5 % topical patch 1 patch topical DAILY #15 ea 12/24/24 12/27/24 Rx methocarbamol 750 mg tablet 1,500 mg (2 x 750 mg) PO TID #42 12/24/24 12/27/24 Rx tabs Patient hx anesthesia problems: none Family hx anesthesia problems: none Results Review: All pre-operative results and documents have been reviewed as part of the pre- operative evaluation. [facility] Past Medical History Medical History (Updated 12/25/24 @ 00:01 by Karime Cueto) Hyperlipidemia Surgical History Surgical History History of tubal ligation H/O: hysterectomy Social History Social History Smoking status: Never smoker Alcohol intake: current Alcohol use details: social Substance use type: does not use Living arrangements: with family Additional living arrangements comments: family lives close Gender identity (if verbalized by the patient): Female Spiritual care concerns: No Anes - Eval Final PreProcedure Day of Procedure 12/27/24 06:57 Patient weight: overweight Heart: regular rate and rhythm Lungs: clear to auscultation Airway: Mallampati scale class II Neurological: alert and oriented Last oral intake: >/= 8 hours ASA classification: II Emergent: no Anesthetic plan: proceed Anesthesia type and monitoring: general GIVS and standard monitoring Results Review: All pre-operative results and documents have been reviewed as part of the pre- operative evaluation. Informed Consent: The patient's anesthetic plan and its attendant risks and benefits were discussed with the patient/family/POA. Questions were solicited and answers provided to the satisfaction of the patient/family/POA.
--- NOTE | 2024-12-27 07:27 | PM.HPGS ---
History of Present Illness History of Present Illness Consent: Risks, benefits, and alternatives have been discussed and questions answered. Patient agrees to proceed with procedure. Chief complaint: screening Narrative: Lyndsay Redd is a 74 year old female with history of colon polyp Review of Systems Review of Systems: All systems reviewed & are unremarkable except as noted in HPI and below [facility] Past Medical History Medical History (Updated 12/27/24 @ 07:29 by Chay Ramires MD) Colon polyp Hyperlipidemia Surgical History Surgical History History of tubal ligation H/O: hysterectomy Social History Social History Smoking status: Never smoker Alcohol intake: current Alcohol use details: social Substance use type: does not use Living arrangements: with family Additional living arrangements comments: family lives close Gender identity (if verbalized by the patient): Female Spiritual care concerns: No Meds Home Medications and Allergies Home Medications ?Medication ?Instructions ?Recorded ?Confirmed ?Type carvedilol 3.125 mg tablet 3.125 mg PO BID 11/20/23 12/27/24 History rosuvastatin 20 mg tablet 20 mg PO DAILY 11/20/23 12/27/24 History acetaminophen 500 mg tablet 1,000 mg (2 x 500 mg) PO TID PRN 12/24/24 12/27/24 Rx michael 7 days #42 tabs lidocaine 5 % topical patch 1 patch topical DAILY #15 ea 12/24/24 12/27/24 Rx methocarbamol 750 mg tablet 1,500 mg (2 x 750 mg) PO TID #42 12/24/24 12/27/24 Rx tabs Allergies Allergy/AdvReac Type Severity Reaction Status Date / Time No Known Allergies Allergy Verified 12/27/24 06:22 Vital Signs Vital Signs - 24 hr 12/27/24 06:25 Temperature 97.6 F Pulse Rate 73 Respiratory Rate 16 Blood Pressure 115/74 Pulse Oximetry 97 Oxygen Delivery Room Air Exam Const: General: comfortable and no acute distress HENMT: Face/Nose/Sinus: Normal nares present Eyes: General: appearance normal, both eyes and all related structures Neck: Neck: no JVD Resp: Auscultation: clear to auscultation bilaterally Cardio: Rate: regular rate Rhythm: regular rhythm GI: Inspection: non-distended GI Palp: Yes Soft to palpation Skin: General skin exam: normal color Neuro: Speech: normal speech Extrem: General: normal to inspection Psych: Mental Status: mental status grossly normal Assessment and Plan Assessment and plan (1) Colon polyp: Code(s): K63.5 - Polyp of colon Status: Acute Assessment and Plan: colonoscopy
[2024-12-27 07:43] VITALS: BP 93/50; PULSE 67; RESP 20; O2SAT 96
[2024-12-27 07:53] VITALS: BP 109/63; PULSE 73; RESP 20; O2SAT 99
[2024-12-27 08:03] VITALS: BP 110/61; PULSE 63; RESP 15; O2SAT 100
== END 2024-12-27 08:10 | disposition home or self-care (01) ==
PROVIDERS: PCP Family Medicine; Referring Provider Family Medicine; Visit Provider Internal Medicine Gastroenterology
PROC: 0DJD8ZZ Inspection of Lower Intestinal Tract, Via Natural or Artificial Opening Endoscopic (ICD-10-PCS; CPT 45378; principal; 2024-12-27 07:30)
DX: Z12.11 Encounter for screening for malignant neoplasm of colon (principal); K64.8 Other hemorrhoids; E78.5 Hyperlipidemia, unspecified; Z98.890 Other specified postprocedural states; Z98.51 Tubal ligation status; Z86.0100 Personal history of colon polyps, unspecified
CPT/HCPCS: G0105; J2704; J7120

== ENCOUNTER 2025-03-04 07:21 | Outpatient (CLI) | payer MEDICARE, SELFPAY ==
--- NOTE | ~2025-03-04 | MM_ITS ---
EXAMINATION: MM screening michaela BI w reza HISTORY: Screening TECHNIQUE: Craniocaudal and mediolateral oblique 3-D tomosynthesis images were obtained and synthetic 2-D images were generated. CAD analysis was submitted and interpreted. COMPARISON: Comparison to multiple prior studies sequentially, with oldest reviewed study dated , 06/30/2009 BREAST PARENCHYMAL COMPOSITION: The breasts are extremely dense, which lowers the sensitivity of mammography. FINDINGS: There is no evidence of suspicious mass, calcification, or architectural distortion to suggest malignancy in either breast. IMPRESSION: 1. No mammographic evidence of malignancy. 2. Recommend routine screening mammography in one year. BI-RADS Category 1: Negative Reviewed, dictated and finalized at location B.
--- NOTE | ~2025-03-04 | DEXA_ITS ---
Bone Density Report Name: FLOR MONTIEL Age: 74 Sex: Female Ethnicity: White Date of : 1950 Indication: osteopenia; monitoring treatment; height loss; hysterectomy; Referring Provider: ONI, MADY Tran Study: Bone densitometry was performed. Exam Date: March 04, 2025 Accession number: [id number] Bone Density: Region BMD T-score Z-score Classification AP Spine(L1-L4) 0.903 -1.3 1.0 Osteopenia Femoral Neck (Left) 0.593 -2.3 -0.3 Osteopenia Total Hip (Left) 0.866 -0.6 1.1 Normal Femoral Neck (Right) 0.676 -1.6 0.5 Osteopenia Total Hip (Right) 0.885 -0.5 1.3 Normal Total Hip Mean 0.876 -0.6 1.2 Normal World Health Organization criteria for BMD impression classify patients as: Normal (T-score at or above -1.0), Osteopenia (T-score between -1.0 and -2.5), or Osteoporosis (T-score at or below -2.5). 10-year Fracture Risk: FRAX not reported because: Treated for osteoporosis Previous Exams: Region Exam Age BMD T-score BMD Change BMD Change Date g/cm2 vs Baseline vs Previous AP Spine (L1-L4) 03/04/2025 74 0.903 -1.3 0.096 (11.9%)* 0.096 (11.9%)* 05/09/2022 72 0.807 -2.2 Total Hip(Left) 03/04/2025 74 0.866 -0.6 0.046 (5.6%)* 0.046 (5.6%)* 05/09/2022 72 0.820 -1.0 Total Hip(Right) 03/04/2025 74 0.885 -0.5 0.068 (8.3%)* 0.068 (8.3%)* 05/09/2022 72 0.817 -1.0 *Denotes significance at 95% confidence level, LSC for AP Spine = 0.022 g/cm2, LSC for Total Hip = 0.027 g/cm2 Clinical Information Provided by Patient: Is being treated for osteoporosis Has used the following medications: Fosamax (i.e. alendronate), Vitamin D, Calcium Has the following medical conditions: Hysterectomy Patient maximum height was 64 Menopause Age: 50 No regular weight bearing exercise Drinks caffeinated beverages Onset of menses at age 14 Number of children 2 Impression: The patient has low bone mass, based on the Left Femoral Neck T-score. No significant bone loss was observed. Discussion: PATIENT UNDER TREATMENT WITH NO SIGNIFICANT BMD LOSS SINCE LAST EXAM. In an untreated patient, BMD typically declines with age. A lack of decline or gain is usually a sign that treatment is efficacious and fracture risk is reduced. It is important to ask patients whether they are taking their medications and to encourage continued and appropriate compliance with their osteoporosis therapies to reduce fracture risk. It is also important to review their risk factors and encourage appropriate calcium and vitamin D intakes, exercise, fall prevention and other lifestyle measures. Follow-Up: Consider a repeat BMD and Vertebral Fracture Assessment (VFA) exam in 2 years or sooner if medically necessary, to reassess this patient's status. Reported by: GLENDY on 03/04/2025 8:10:00 AM. Reviewed, dictated and finalized at location A.
== END 2025-03-04 07:22 | disposition home or self-care (01) ==
LOC: ANHFOHIMG 07:24
PROVIDERS: PCP Family Medicine; Visit Provider Family Medicine
DX: Z12.31 Encounter for screening mammogram for malignant neoplasm of breast (principal); M85.89 Other specified disorders of bone density and structure, multiple sites
CPT/HCPCS: 77063; 77067; 77080